=== PATIENT | male | born 1985 | race Caucasian/White ===

== ENCOUNTER 2016-12-08 12:04 | Inpatient (IN) | payer BC, OTHER ==
[~2016-12-08] VITALS: Ht 182.9 cm; Wt 95.3 kg
[2016-12-08] MEDS ORDERED: MIRALAX 17 GM POWD.PACK PO PRN (13:30)
[2016-12-08] MEDS ORDERED: LOPERAMIDE HCL 2 MG CAPSULE PO PRN ×2 (13:30)
[2016-12-08] MEDS ORDERED: ONDANSETRON ODT 4 MG TAB.RAPDIS SL PRN (13:30)
[2016-12-08] MEDS ORDERED: MAGNESIUM HYDROXIDE 30 ML LIQUID UDC PO PRN (13:30)
[2016-12-08] MEDS ORDERED: LORAZEPAM 2 MG/1 ML VIAL IM PRN (13:30)
[2016-12-08] MEDS ORDERED: ACETAMINOPHEN 325 MG TABLET PO PRN (13:30)
[2016-12-08] MEDS ORDERED: HYDROXYZINE PAMOATE 25 MG CAPSULE PO PRN (13:30)
[2016-12-08] MEDS ORDERED: LORAZEPAM 1 MG TABLET PO PRN (13:30)
[2016-12-08] MEDS ORDERED: DICYCLOMINE HCL 20 MG TABLET PO PRN (13:30)
[2016-12-08] MEDS ORDERED: PROMETHAZINE HCL 25 MG/1 ML VIAL IM PRN (13:30)
[2016-12-08] MEDS ORDERED: THIAMINE HCL 200 MG/2 ML VIAL IM ONE (13:30)
[2016-12-08] MEDS ORDERED: MAG HYDROX/AL HYDROX/SIMETH 30 ML LIQUID UDC PO PRN (13:30)
[2016-12-08] MEDS ORDERED: diphenhydrAMINE 50 MG CAPSULE PO PRN (13:30)
[2016-12-08] MEDS ORDERED: IBUP200C5 PO (13:51)
[2016-12-08] MEDS ORDERED: SUMA20SP6 NS (13:51)
[2016-12-08] MEDS: LORAZEPAM 1 MG TABLET PO PRN ×3 (14:25→20:50)
[2016-12-08 14:39] VITALS: BP 104/59
[2016-12-08 15:08] LABS: ALBUMIN 4.3 g/dL (3.4-5.0); BASOPHILS % (AUTO) 0.4 % (0.0-2.0); BILIRUBIN,TOTAL 0.5 mg/dL (0.2-1.0); CALCIUM 9.2 mg/dL (8.5-10.1); EOSINOPHILS % (AUTO) 0.2 % (0.0-7.0); HEMATOCRIT 46.8 % (40.0-50.0); HEMOGLOBIN 15.8 g/dL (14.0-18.0); LYMPHOCYTES # (AUTO) 1.2 K/uL (0.8-4.8); LYMPHOCYTES % (AUTO) 16.9 % (20.5-51.5); MAGNESIUM 2.1 mg/dL (1.8-2.4); MEAN CORPUSCULAR HEMOGLOBIN 28.9 uug (27.0-31.0); MEAN CORPUSCULAR HGB CONC 34 g/dL (32.0-37.0); MEAN CORPUSCULAR VOLUME 85.7 fL (82.0-92.0); MONOCYTES # (AUTO) 0.2 K/uL (0.1-1.30); MONOCYTES % (AUTO) 2.3 % (0.0-11.0); NEUTROPHILS # (AUTO) 5.7 K/uL (1.8-8.9); NEUTROPHILS % (AUTO) 80.2 % (38.5-71.5); PLATELET COUNT (AUTO) 313 K/uL (150-450); POTASSIUM 3.7 mmol/L (3.5-5.1); RED BLOOD CELL COUNT(AUTO) 5.47 MIL/uL (4.70-6.10); RED CELL DISTRIBUTION WIDTH 12.3 % (11.5-14.5); TOTAL PROTEIN, SERUM 7.7 g/dL (6.4-8.2); WHITE BLOOD COUNT (AUTO) 7.1 K/uL (4.0-11.2)
[2016-12-08 15:09] LABS: CREATININE 1.6 mg/dL (0.6-1.3)
[2016-12-08 15:11] LABS: THYROID STIMULATING HORMONE 0.327 mIU/mL (0.358-3.740)
[2016-12-08 15:30] LABS: HIV-1 p24 ANTIGEN NON REACTIVE (NONREACTIVE); HIV-1/2 ANTIBODY NON REACTIVE (NONREACTIVE)
[2016-12-08 15:59] LABS: *AMPHETAMINE, URINE NEGATIVE (NEGATIVE); *BARBITURATE, URINE NEGATIVE (NEGATIVE); *CANNABINOID, URINE NEGATIVE (NEGATIVE); *COCCAINE, URINE POSITIVE (NEGATIVE); *OPIATE, URINE NEGATIVE (NEGATIVE); *PHENCYCLIDINE SCREEN,URINE NEGATIVE (NEGATIVE)
[2016-12-08 17:30] VITALS: BP 114/54
[2016-12-08 20:00] VITALS: BP 115/72
[2016-12-08] MEDS: GABAPENTIN 300 MG CAPSULE PO SCH (20:50)
[2016-12-09] VITALS: BP 123/73
[2016-12-09 04:00] VITALS: BP 121/79
[2016-12-09] MEDS: FOLIC ACID 1 MG TABLET PO SCH (08:40)
[2016-12-09] MEDS: LORAZEPAM 1 MG TABLET PO SCH ×4 (08:40→20:08)
[2016-12-09] MEDS: THIAMINE HCL 100 MG TABLET PO SCH (08:41)
[2016-12-09] MEDS: GABAPENTIN 300 MG CAPSULE PO SCH ×3 (08:41→20:08)
[2016-12-09] MEDS: DOCUSATE SODIUM 250 MG CAPSULE PO SCH (08:41)
[2016-12-09] MEDS: MULTIVITAMINS,THERAPEUTIC TABLET PO SCH (08:41)
[2016-12-09 08:48] VITALS: BP 138/87
[2016-12-09] MEDS ORDERED: 5 DAY TAPER OF LORAZEPAM -SERENITY PROTOCOL PO PRN (09:00)
[2016-12-09] MEDS ORDERED: TUBERCULIN,PURIF.PROT.DERIV. 5 TU/0.1 ML TEST ID ONE (09:00)
[2016-12-09 12:03] VITALS: BP 137/85
[2016-12-09] MEDS: IBUPROFEN 400 MG TABLET PO PRN ×2 (12:06→22:24)
[2016-12-09] MEDS: CLONIDINE HCL 0.1 MG TABLET PO PRN ×2 (12:06→22:25)
[2016-12-09 14:11] LABS: HCV AB <0.1 s/co ratio (0.0-0.9); HEPATITIS B CORE AB, IgM Negative (Negative); HEPATITIS B SURFACE AG Negative (Negative)
[2016-12-09 16:00] VITALS: BP 135/84
[2016-12-09 20:00] VITALS: BP 115/62
[2016-12-10] VITALS: BP 111/61
[2016-12-10 08:09] VITALS: BP 106/64
[2016-12-10] MEDS: MULTIVITAMINS,THERAPEUTIC TABLET PO SCH (08:48)
[2016-12-10] MEDS: FOLIC ACID 1 MG TABLET PO SCH (08:48)
[2016-12-10] MEDS: LORAZEPAM 1 MG TABLET PO SCH ×3 (08:48→21:02)
[2016-12-10] MEDS: DOCUSATE SODIUM 250 MG CAPSULE PO SCH (08:48)
[2016-12-10] MEDS: THIAMINE HCL 100 MG TABLET PO SCH (08:48)
[2016-12-10] MEDS: GABAPENTIN 300 MG CAPSULE PO SCH ×3 (08:48→21:02)
[2016-12-10 08:50] LABS: CALCIUM 8.9 mg/dL (8.5-10.1); POTASSIUM 4.1 mmol/L (3.5-5.1)
[2016-12-10 08:53] LABS: CREATININE 1.4 mg/dL (0.6-1.3)
[2016-12-10 08:55] LABS: THYROID STIMULATING HORMONE 1.858 mIU/mL (0.358-3.740)
[2016-12-10 09:04] LABS: *BILIRUBIN,URIN NEGATIVE (NEGATIVE); *BLOOD, URINE Trace-intact (NEGATIVE); *CLARITY,URINE CLEAR (CLEAR); *COLOR,URINE YELLOW (YELLOW); *KETONES,URINE NEGATIVE (NEGATIVE); *PROTEIN,URINE NEGATIVE (NEGATIVE); *UROBILINOGEN,URINE 0.2 E.U./dl (NORMAL); LEUKOCYTE ESTERASE ,URINE NEGATIVE (NEGATIVE); NITRITE, URINE NEGATIVE (NEGATIVE); PH,URINE 6.5 (5.0-8.0); UGLUCOSE NEGATIVE (NEGATIVE)
[2016-12-10 09:14] LABS: *CREATININE,URINE 282.5 mg/dL (30-125)
[2016-12-10 11:41] LABS: BACTERIA,URINE NONE SEEN /HPF (NONE SEEN); RBC,URINE 0-3 /HPF (0-3); SQUAMOUS EPITHELIAL CELL,UR FEW /HPF (NONE SEEN); WBC,URINE 0-3 /HPF (0-3)
[2016-12-10 12:00] VITALS: BP 134/88
[2016-12-10] MEDS ORDERED: METHOCARBAMOL 750 MG TABLET PO PRN (14:00)
[2016-12-10] MEDS: HYDROXYZINE PAMOATE 25 MG CAPSULE PO SCH ×2 (15:23→21:03)
[2016-12-10] MEDS: CLONIDINE HCL 0.1 MG TABLET PO SCH ×2 (15:24→21:00)
[2016-12-10] MEDS: KETOROLAC TROMETHAMINE 30 MG INJ IM PRN (15:25)
[2016-12-10 16:00] VITALS: BP 139/94
[2016-12-10 20:00] VITALS: BP 94/54
[2016-12-11 08:00] VITALS: BP 101/68
[2016-12-11] MEDS: THIAMINE HCL 100 MG TABLET PO SCH (09:48)
[2016-12-11] MEDS: MULTIVITAMINS,THERAPEUTIC TABLET PO SCH (09:48)
[2016-12-11] MEDS: KETOROLAC TROMETHAMINE 30 MG INJ IM PRN (09:48)
[2016-12-11] MEDS: GABAPENTIN 300 MG CAPSULE PO SCH ×3 (09:48→21:19)
[2016-12-11] MEDS: LORAZEPAM 1 MG TABLET PO SCH ×4 (09:49→21:19)
[2016-12-11] MEDS: HYDROXYZINE PAMOATE 25 MG CAPSULE PO SCH ×3 (09:49→21:19)
[2016-12-11] MEDS: FOLIC ACID 1 MG TABLET PO SCH (09:49)
[2016-12-11] MEDS: DOCUSATE SODIUM 250 MG CAPSULE PO SCH (09:49)
[2016-12-11] MEDS: CLONIDINE HCL 0.1 MG TABLET PO SCH ×3 (09:49→21:19)
[2016-12-11 12:00] VITALS: BP 109/67
[2016-12-11] MEDS ORDERED: PATIENT MAY USE OWN MED- MD OK NS PRN (13:00)
[2016-12-11] MEDS ORDERED: IBUPROFEN 400 MG TABLET PO PRN (13:30)
[2016-12-11 16:00] VITALS: BP 130/84
[2016-12-11 20:00] VITALS: BP 121/67
[2016-12-12 08:17] VITALS: BP 131/80
[2016-12-12] MEDS: THIAMINE HCL 100 MG TABLET PO SCH (09:05)
[2016-12-12] MEDS: HYDROXYZINE PAMOATE 25 MG CAPSULE PO SCH ×3 (09:05→20:51)
[2016-12-12] MEDS: MULTIVITAMINS,THERAPEUTIC TABLET PO SCH (09:05)
[2016-12-12] MEDS: GABAPENTIN 300 MG CAPSULE PO SCH ×3 (09:06→20:51)
[2016-12-12] MEDS: FOLIC ACID 1 MG TABLET PO SCH (09:06)
[2016-12-12] MEDS: DOCUSATE SODIUM 250 MG CAPSULE PO SCH (09:06)
[2016-12-12] MEDS: CLONIDINE HCL 0.1 MG TABLET PO SCH ×3 (09:06→20:50)
[2016-12-12] MEDS: LORAZEPAM 1 MG TABLET PO SCH ×3 (09:06→20:50)
[2016-12-12] MEDS: IBUPROFEN 600 MG TABLET PO PRN (10:26)
[2016-12-12] MEDS: ESCITALOPRAM OXALATE 10 MG TABLET PO SCH (10:26)
[2016-12-12 12:00] VITALS: BP 126/83
[2016-12-12 16:00] VITALS: BP 122/66
[2016-12-12 20:00] VITALS: BP 125/73
[2016-12-12] MEDS: FAMOTIDINE 20 MG TABLET PO SCH (20:50)
[2016-12-13 08:13] VITALS: BP 108/69
[2016-12-13] MEDS: HYDROXYZINE PAMOATE 25 MG CAPSULE PO SCH ×3 (09:49→20:28)
[2016-12-13] MEDS: MULTIVITAMINS,THERAPEUTIC TABLET PO SCH (09:49)
[2016-12-13] MEDS: GABAPENTIN 300 MG CAPSULE PO SCH ×3 (09:49→20:29)
[2016-12-13] MEDS: ESCITALOPRAM OXALATE 10 MG TABLET PO SCH (09:49)
[2016-12-13] MEDS: LORAZEPAM 1 MG TABLET PO SCH ×2 (09:49→20:28)
[2016-12-13] MEDS: DOCUSATE SODIUM 250 MG CAPSULE PO SCH (09:49)
[2016-12-13] MEDS: THIAMINE HCL 100 MG TABLET PO SCH (09:50)
[2016-12-13] MEDS: CLONIDINE HCL 0.1 MG TABLET PO SCH ×3 (09:50→20:29)
[2016-12-13] MEDS: FAMOTIDINE 20 MG TABLET PO SCH ×2 (09:50→20:28)
[2016-12-13] MEDS: FOLIC ACID 1 MG TABLET PO SCH (09:50)
[2016-12-13 12:00] VITALS: BP 128/74
[2016-12-13 16:00] VITALS: BP 127/81
[2016-12-13 20:00] VITALS: BP 139/86
[2016-12-13] MEDS: IBUPROFEN 600 MG TABLET PO PRN (22:17)
[2016-12-13] MEDS: TRAZODONE 50 MG TABLET PO PRN (22:17)
[2016-12-14 08:00] VITALS: BP 118/68
[2016-12-14] MEDS: GABAPENTIN 300 MG CAPSULE PO SCH ×3 (08:41→20:41)
[2016-12-14] MEDS: ESCITALOPRAM OXALATE 10 MG TABLET PO SCH (08:41)
[2016-12-14] MEDS: FAMOTIDINE 20 MG TABLET PO SCH ×2 (08:41→20:43)
[2016-12-14] MEDS: HYDROXYZINE PAMOATE 25 MG CAPSULE PO SCH ×3 (08:42→20:41)
[2016-12-14] MEDS: THIAMINE HCL 100 MG TABLET PO SCH (08:42)
[2016-12-14] MEDS: CLONIDINE HCL 0.1 MG TABLET PO SCH ×3 (08:42→20:41)
[2016-12-14] MEDS: DOCUSATE SODIUM 250 MG CAPSULE PO SCH (08:47)
[2016-12-14] MEDS: FOLIC ACID 1 MG TABLET PO SCH (08:47)
[2016-12-14] MEDS: MULTIVITAMINS,THERAPEUTIC TABLET PO SCH (08:48)
[2016-12-14 12:00] VITALS: BP 127/63
[2016-12-14] MEDS: IBUPROFEN 600 MG TABLET PO PRN (13:03)
[2016-12-14 15:00] LABS: *AMPHETAMINE, URINE NEGATIVE (NEGATIVE); *BARBITURATE, URINE NEGATIVE (NEGATIVE); *CANNABINOID, URINE NEGATIVE (NEGATIVE); *COCCAINE, URINE NEGATIVE (NEGATIVE); *OPIATE, URINE NEGATIVE (NEGATIVE); *PHENCYCLIDINE SCREEN,URINE NEGATIVE (NEGATIVE)
[2016-12-14 16:00] VITALS: BP 123/69
[2016-12-14 20:00] VITALS: BP 138/81
[2016-12-14] MEDS: TRAZODONE 50 MG TABLET PO PRN (21:58)
[2016-12-15] MEDS ORDERED: Ibuprofen PO (08:38)
[2016-12-15] MEDS ORDERED: CLON0.1T14 PO (08:38)
[2016-12-15] MEDS ORDERED: TRAZ-144 PO (08:38)
[2016-12-15] MEDS ORDERED: Gabapentin PO (08:38)
[2016-12-15] MEDS ORDERED: METH-33 PO (08:38)
[2016-12-15] MEDS ORDERED: ESCI10TA PO (08:38)
[2016-12-15] MEDS ORDERED: HYDR-3895 PO (08:38)
[2016-12-15] MEDS ORDERED: Famotidine PO (08:38)
[2016-12-15] MEDS: THIAMINE HCL 100 MG TABLET PO SCH (08:40)
[2016-12-15 08:41] VITALS: BP 144/92
[2016-12-15] MEDS: CLONIDINE HCL 0.1 MG TABLET PO SCH (08:41)
[2016-12-15] MEDS: FAMOTIDINE 20 MG TABLET PO SCH (08:44)
[2016-12-15] MEDS: MULTIVITAMINS,THERAPEUTIC TABLET PO SCH (08:44)
[2016-12-15] MEDS: HYDROXYZINE PAMOATE 25 MG CAPSULE PO SCH (08:44)
[2016-12-15] MEDS: GABAPENTIN 300 MG CAPSULE PO SCH (08:44)
[2016-12-15] MEDS: FOLIC ACID 1 MG TABLET PO SCH (08:44)
[2016-12-15] MEDS: DOCUSATE SODIUM 250 MG CAPSULE PO SCH (08:44)
[2016-12-15] MEDS ORDERED: ESCITALOPRAM OXALATE 10 MG TABLET PO SCH (09:00)
[2016-12-16 20:34] LABS: *COCAINE Positive (.)
== END 2016-12-15 10:12 | disposition other institution (70) | DRG 895 ==
LOC: SRC 12:29
PROVIDERS: ADMIT Internal Medicine; ATTEND Internal Medicine
PROC: HZ2ZZZZ Detoxification Services for Substance Abuse Treatment (ICD-10-PCS; principal; 2016-12-08)
PROC: HZ31ZZZ Individual Counseling for Substance Abuse Treatment, Behavioral (ICD-10-PCS; 2016-12-09)
PROC: HZ41ZZZ Group Counseling for Substance Abuse Treatment, Behavioral (ICD-10-PCS; 2016-12-09)
DX: F10.220 Alcohol dependence with intoxication, uncomplicated (principal); N17.9 Acute kidney failure, unspecified; F10.239 Alcohol dependence with withdrawal, unspecified; Y90.9 Presence of alcohol in blood, level not specified; Z81.1 Family history of alcohol abuse and dependence; E07.81 Sick-euthyroid syndrome; F41.9 Anxiety disorder, unspecified
CPT/HCPCS: 36415; 70030-TC; 76770; 80307; 80353; 83690; 83735; 84300; 84443; 85025; 86592; 86705; 86803; 87340; 87806; 93005; A4663; G6040-TC; J1885; Q0163